=== PATIENT | female | born 1965 | race Caucasian/White ===

== ENCOUNTER 2017-01-05 19:23 | Emergency (ER) | payer OTHER ==
[2017-01-05 19:35] VITALS: BP 121/59
[2017-01-05] MEDS ORDERED: Sodium Chloride 0.9% 10 ML Syringe FLUSH PRN (19:37)
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
--- NOTE | 2017-01-05 20:17 | CT ---
Head CT Technique: Multiple axial sections through the brain were obtained. Intravenous contrast was not utilized. Comparison: Previous MRI brain dated 10/01 13 is available, no previous head CT exam. Findings: Ventricles along with basal cisterns and sulci over convexities are within normal limits for the patient's age. No abnormal parenchymal densities are seen. No evidence of intracranial hemorrhage. No midline shift or mass effect is seen. Bone window settings shows fractures in 3 places within the left zygomatic arch with mild displacement. There is a fracture within the anterior and posterolateral left maxillary sinus showing mild displacement. Fracture also noted within the lateral left orbital wall Small amount of fluid is seen within the maxillary sinus on left side likely relating to blood. Periorbital soft tissue swelling is noted as well as soft tissue air. Impression: 1. Left-sided facial bone fractures as described above. Soft tissue air and soft tissue swelling is noted within the periorbital region. 2. No acute intracranial abnormality is identified. No skull fracture is identified. Diagnostic code #3
--- NOTE | 2017-01-05 20:17 | CT ---
CT cervical spine Technique: Multiple axial sections were obtained from above C1 inferiorly to the mid T1 level. Reconstructed sagittal and coronal images were reviewed. Findings: Mild mucosal thickening is seen within the sphenoid sinus. Mucosal thickening is noted within the left mastoid sinus. Posterior skull base is intact. Severe disc space narrowing noted at C5-C6 and C6-C7 with posterior spurring. There is moderate left-sided neural foraminal stenosis noted at C5-C6. Moderate left-sided neural foraminal stenosis also noted at C6-C7. Other neural foramina are felt to be fairly well patent. No bony central canal stenosis is seen. Vertebral bodies and posterior arches are intact with no fracture being seen. Mild degenerative apophyseal change is seen within the lower cervical spine. Mild degenerative spurring within the uncovertebral joints are noted at C3-C4 and, C4-C5 and more prominently at C5-C6 and C6-C7. Impression: 1. Degenerative change as noted above. 2. Mucosal thickening within sphenoid and left mastoid sinus most likely chronic. 3. Nothing acute is identified on CT study of the cervical spine. Diagnostic code #2
[2017-01-05] MEDS ORDERED: Potassium Chloride 20 MEQ Tab.ER PO ONE (20:51)
[2017-01-05] MEDS ORDERED: Acetaminophen Soln 650 MG/20.3 ML UD Cup PO ONE (20:51)
[2017-01-05] MEDS ORDERED: Ibuprofen 400 MG Tab PO ONE (21:00)
--- NOTE | 2017-01-06 09:26 | CR ---
Chest: Portable view of the chest was obtained. Comparison: No previous chest x-ray. Heart size and mediastinum are normal. Lung markings are slightly increased. Lungs otherwise are clear. Bony structures are grossly intact. Impression: 1. Slight increased lung markings. Without old films uncertain if this represents mild interstitial change on acute basis or is chronic. I suspect the latter. 2. Portable chest x-ray is otherwise unremarkable. Diagnostic code #3
== END 2017-01-05 21:45 | disposition home or self-care (01) ==
LOC: JD.ED 19:23
DX: S02.92XA Unspecified fracture of facial bones, initial encounter for closed fracture (principal); V86.99XA Unspecified occupant of other special all-terrain or other off-road motor vehicle injured in nontraffic accident, initial encounter; Z79.899 Other long term (current) drug therapy; Z88.0 Allergy status to penicillin; Z88.1 Allergy status to other antibiotic agents
CPT/HCPCS: 12011; 36415; 70450; 71010; 72125; 80053; 80306; 85025; 99285; A9270; G0480; J7050; 99284